=== PATIENT | male | born 1960 | race Caucasian/White ===

== ENCOUNTER → 2016-11-13 | Outpatient (CLI) | payer BC ==
--- NOTE | ~2016-11-13 | MR113 ---
[facility]. [facility] A Service of [facility] & [facility] RADIOLOGY TEXT RESULTS PATIENT: SANTOS MILLAN LOCATION: [facility] : 60 UNIT #: [id number] AGE: [address]: Yeison Barger MD SEX: M ORDER DR: [id number] [address] [address] [id number] O MR#: [id number] Acc #: [id number] NAME: SANTOS MILLAN : 1960 SEX: M STUDY DATE/TIME: 11/13/2016 12:21 UNIT: [facility] ROOM: STUDY DESCRIPTION: MR Lumbar Wo Contrast Attending Physician: Yeison Barger M.D. Referring Physician: Yeison Barger M.D. Ordering Physician: Yeison Barger M.D. Primary Care Physician: Magan Rangel M.D. MRI CENTER REPORT This report is preliminary unless electronic signature is present. EXAM Lumbar MRI HISTORY Back pain radiating to the right lower extremity for several years but worsening recently. Pain is worse with activity. TECHNIQUE Multiplanar imaging lumbar spine was performed with short and long TR. FINDINGS. Alignment is satisfactory. Degenerative changes are seen at all 5 lumbar discs. At L1-L2, there is mild disc bulging and mild facet hypertrophy. The canal and foramina are widely patent. At L2-L3, the disc is desiccated with minimal concentric bulging. There is mild bilateral facet hypertrophy. The canal and foramina are widely patent. At L3-4, there is disc space narrowing with broad-based moderate disc bulging and mild to moderate bilateral facet disease. There is mild central stenosis. Foraminal narrowing is present on the right side to a mild degree. The left foramen is widely patent. At L4-5, the disc is narrowed with broad-based posterior disc bulging and osteophyte and mild bilateral facet disease. Central stenosis is mild and foraminal stenosis is mild bilaterally. At L5-S1, there is disc space narrowing with reactive endplate changes. There is broad-based posterior disc bulging from right to left and mild STS. [facility] A Service of [facility] & [facility] RADIOLOGY TEXT RESULTS PATIENT: SANOTS MILLAN LOCATION: [facility] : 60 UNIT #: [id number] AGE: [address]: Yeison Barger MD SEX: M ORDER DR: bilateral facet hypertrophy. Foraminal narrowing is moderate on the left side and moderately severe on the right side. There is an asymmetric lateral disc protrusion within the foramen on the right side that contacts the exiting nerve root. This is the most likely level causing right-sided radicular symptoms. The conus is normal. There is no evidence of marrow edema and no paraspinous masses are seen. IMPRESSION Multilevel degenerative disc and facet disease as described above level by level. The most prominent right-sided foraminal stenosis is at L5-S1. No discrete disc herniation is seen, but there is asymmetric lateral disc protrusion within the foramen at the L5-S1 level. This contacts the exiting nerve root. Dictated by... Ted Acharya M.D. THIS IS AN ELECTRONICALLY VERIFIED REPORT Ted Acharya M.D. at 11/19/2016 7:10 AM Betty TD: 11/13/2016 21:02 JOB #: [id number] MRI CENTER REPORT Page 1 of 1
== END | disposition home or self-care (01) ==
LOC: SMRI 11:53
DX: M51.27 Other intervertebral disc displacement, lumbosacral region (principal); M51.36 Other intervertebral disc degeneration, lumbar region; M99.83 Other biomechanical lesions of lumbar region; M99.84 Other biomechanical lesions of sacral region
CPT/HCPCS: 72148